=== PATIENT | male | born 1955 | race Caucasian/White ===

== ENCOUNTER 2018-03-04 06:07 | Day surgery (SDC) | payer BC ==
[~2018-03-04] VITALS: Ht 167.6 cm; Wt 82.6 kg
[~2018-03-04 06:07] MED LIST: AMLO5TAB2 PO; L.AC1CAP6 PO; LEVO50TA6 PO; MELO15TA39 PO; TRAM50TA2 PO
[2018-03-04 06:30] VITALS: BP 163/93
[2018-03-04] MEDS ORDERED: ceFAZolin 2 GM IV Premixed 50 ML IV ONE (06:30)
[2018-03-04] MEDS ORDERED: ceFAZolin 2 GM IV Premixed 50 ML ONE (06:45)
[2018-03-04] MEDS: LACTATED RINGERS 1,000 ML IV PRN ×2 (07:01→08:28)
[2018-03-04] MEDS ORDERED: proPOfol 200 MG/20 ML (DIPRIVAN) VIAL IV ONE (07:03)
[2018-03-04] MEDS ORDERED: LISI-556 PO (07:03)
[2018-03-04] MEDS ORDERED: fentaNYL INJECTION 100 MCG/2 ML AMP ONE (07:03)
[2018-03-04] MEDS ORDERED: LACTATED RINGERS 1,000 ML IV ONE ×2 (07:03→08:24)
[2018-03-04] MEDS ORDERED: LIDOCAINE PF 2% 5 ML (XYLOCAINE) VIAL ONE (07:03)
[2018-03-04] MEDS ORDERED: MIDAZOLAM 2 MG/2 ML (VERSED) VIAL ONE (07:03)
[2018-03-04] MEDS ORDERED: DEXAMETHASONE 10 MG/ML (DECADRON) 1 ML VIAL ONE (07:05)
[2018-03-04] MEDS ORDERED: ONDANSETRON 4 MG/2 ML (SDV) Z0FRAN ONE (07:05)
[2018-03-04] MEDS ORDERED: LIDOCAINE/EPI 1%-1:200,000 (XYLOCAINE) 10 ML VIAL ONE (07:28)
--- NOTE | 2018-03-04 08:04 | Progress Note-Pre Operative ---
Pre-Operative Progress Note H&P Reviewed The H&P was reviewed, patient examined and no changes noted. Time Seen by Provider: 07:58 Date H&P Reviewed: Mar 04, 2018 Time H&P Reviewed: 08:00 Pre-Operative Diagnosis: Venous Insufficiency JUAN CARLOS GAINES DO Mar 04, 2018 08:04
--- NOTE | 2018-03-04 08:33 | Progress Note-Post Operative ---
Post-Operative Progess Note Surgeon (s)/Butter Production Supervisor (s) Surgeon JUAN CARLOS GAINES DO Butter Production Supervisor: none Pre-Operative Diagnosis Venous Insufficiency Post-Operative Diagnosis Same Procedure & Operative Findings Date of Procedure 03/04/18 Procedure Performed/Findings Aiyana-cath removal Anesthesia Type IV sedation by Anesthesiologist Estimated Blood Loss Estimated blood loss (mL): scant Specimens/Packing Specimens Removed aiyana-cath JUAN CARLOS GAINES DO Mar 04, 2018 08:33
--- NOTE | 2018-03-04 08:37 | Discharge Inst-Surgical ---
Discharge Inst-Surgical Depart Medication/Instructions New, Converted or Re-Newed RX: Other (no Rx needed) Patient Instructions Follow up Appt: Make appointment for 1 week. Instructions: No strenuous activity today. May shower in 24 hours, no tub bath or soaking. Use incentive spirometer at home as directed. No Smoking Skin/Wound Care: May remove bandages in am. You need to leave the Dermabond on over incision it will fall off on its own. Symptoms to Report: Appetite Changes, Extremity Discoloration, Numbness/Tingling, Swelling Increased , Bleeding Excessive, Eyesight Changes, Pain Increased, Urine Color Change, Constipation(Persistent), Fever over 101 degree F, Pain/Pressure in chest, Urinating Difficulty, Cough Up/Vomit Blood, Heart Beat Irreg/Pounding, Pain/ Pressure in jaw, Cramps in feet or legs, Lightheadedness, Pain/Pressure in shoulder, Diarrhea(Persistent), Memory Changes Suddenly, Questions/Concerns, Weight gain consecutive days, Dizziness/Fainting, Nausea/Vomiting, Shortness of Breath, Weight gain over 2 pounds If questions or concerns contact your physician Or seek help at emergency department. Activity Driving Instructions: You May Drive (tomorrow) Diet Discharge Diet: No Restrictions Diet After 24 Hours: Clear Liquid if Nauseous If Any Problems/Questions/Issu: Contact Your Physician, Go to Emergency Room Skin/Wound Care Infection Signs and Symptoms: Increased Redness, Foul Odor of Wound, Increased Drainage, Skin Itchy or Has a Rash, Increased Swelling, Temperature Above 101 F Stitches/Adel/Dermabond Dis: Dermabond Ice Pack: Ice On and Off Site (as needed for pain) JUAN CARLOS GAINES DO Mar 04, 2018 08:37
[2018-03-04 08:45] VITALS: BP 123/73
[2018-03-04 09:15] VITALS: BP 141/81
--- NOTE | 2018-03-04 09:17 | Anesthesia-General Post-Op ---
MAC Patient Condition Mental Status/LOC: Same as Preop Cardiovascular: Satisfactory Nausea/Vomiting: Absent Respiratory: Satisfactory Pain: Controlled Complications: Absent Post Op Complications Complications None Follow Up Care/Instructions Patient Instructions None needed. Anesthesiology Discharge Order Discharge Order Patient is doing well, no complaints, stable vital signs, no apparent adverse anesthesia problems. No complications reported per nursing. ERASMO BREWSTER CRNA Mar 04, 2018 09:17
--- NOTE | 2018-03-04 09:31 | OPERATIVE REPORT ---
DATE OF SERVICE: PREOPERATIVE DIAGNOSES: Venous insufficiency and history of cancer. POSTOPERATIVE DIAGNOSES: Venous insufficiency and history of cancer. PROCEDURE: Port-A-Cath removal. SURGEON: Iam Bernard DO. SLAT PICKLER: None. ANESTHESIA: IV sedation by the LOAN SERVICES PROFESSIONAL. SPECIMEN: Port-A-Cath. BLOOD LOSS: Scant. FLUIDS: Per anesthesia. POSTOPERATIVE CONDITION: Stable. INDICATION FOR PROCEDURE: The patient is a 62-year-old male, who had a Port-A-Cath placed for cancer and venous insufficiency. He no longer needs it and wants it removed. FINDINGS: The patient had a Port-A-Cath removed without any difficulty. PROCEDURE NOTE: After informed consent was obtained, the patient was brought to the operating room, placed on the table in supine position. He was sterilely prepped and draped in normal fashion. Local lidocaine used to infiltrate the skin under the previous incision as well as around the port. I then made an incision with a #15-blade, carried down through the skin into subcutaneous tissue, made it directly on the previous incision; then deepened down through the subcutaneous tissue with Bovie electrocautery down to the port. The port was then grasped and I was then able to grasp the catheter and pulled the catheter out. I then carefully dissected the port out with Bovie electrocautery going around it, removing it, cutting out the stitch that had been placed to keep it in place and then cutting out the capsule as well. I elected to over-sew the capsule for the catheter to close this off to make sure there was no back bleeding with a 3-0 Vicryl figure-of-8 suture. I copiously irrigated it with normal saline. Hemostasis was obtained using Bovie electrocautery. I elected to close the incision with 4-0 undyed Monocryl, three interrupted subcuticular stitches. The area was cleaned and dried and Dermabond placed as well as then a pressure dressing. The patient was then transferred to the recovery room in stable condition. Sponge, instrument and needle count correct at the end of the case. He tolerated this well. Job ID: [id number] DocumentID: [id number] Dictated Date: 03/04/2018 08:40:00 Rn Vascular Date: 03/04/2018 09:30:40 Dictated By: IAM BERNARD DO
== END 2018-03-04 09:20 | disposition home or self-care (01) ==
LOC: SDC 06:07
PROVIDERS: ATTEND Surgery
DX: Z45.2 Encounter for adjustment and management of vascular access device (principal); I10 Essential (primary) hypertension; Z85.038 Personal history of other malignant neoplasm of large intestine; Z79.899 Other long term (current) drug therapy
CPT/HCPCS: 87081

== ENCOUNTER 2018-05-06 05:40 | Outpatient (CLI) | payer BC ==
[~2018-05-06] VITALS: Ht 167.6 cm; Wt 82.6 kg
[~2018-05-06 05:40] MED LIST changes: -AMLO5TAB2 PO; +AMLO5TAB7 PO; +LISI-556 PO
== END 2018-05-06 13:13 | disposition home or self-care (01) ==
LOC: PREOP 05:40
PROVIDERS: ATTEND Surgery
DX: Z01.818 Encounter for other preprocedural examination (principal)

== ENCOUNTER → 2018-05-13 | Day surgery (SDC) | payer BC ==
[~2018-05-13] VITALS: Ht 167.6 cm; Wt 82.6 kg
[~2018-05-13] MED LIST changes: +LACTATED RINGERS 1,000 ML IV ONE; +LACTATED RINGERS 1,000 ML IV STA; +LIDOCAINE PF 2% 2 ML (XYLOCAINE) VIAL ONE; +MIDAZOLAM 2 MG/2 ML (VERSED) VIAL ONE; +PROPOFOL INJECTION 50 ML IV ONE
[2018-05-13 09:23] VITALS: BP 164/95
--- NOTE | 2018-05-13 10:46 | Progress Note-Pre Operative ---
Pre-Operative Progress Note H&P Reviewed The H&P was reviewed, patient examined and no changes noted. Time Seen by Provider: 10:40 Date H&P Reviewed: May 13, 2018 Time H&P Reviewed: 10:40 Pre-Operative Diagnosis: Personal hx of Colon CA JUAN CARLOS GAINES DO May 13, 2018 10:46
--- NOTE | 2018-05-13 11:18 | Progress Note-Post Operative ---
Post-Operative Progess Note Surgeon (s)/Manager Employee Relations (s) Surgeon JUAN CARLOS GAINES DO Manager Employee Relations: John Cerda, MS III Pre-Operative Diagnosis Personal hx of Colon CA Post-Operative Diagnosis Same plus Descending colon polyp Diverticula Internal Hemorrhoids Procedure & Operative Findings Date of Procedure 05/13/18 Procedure Performed/Findings Colon with snare Anesthesia Type IV Sedation by DUMPER OPERATOR Estimated Blood Loss Estimated blood loss (mL): scant Specimens/Packing Specimens Removed descending colon polyp JUAN CARLOS GAINES DO May 13, 2018 11:18
--- NOTE | 2018-05-13 11:20 | Endoscopy Discharge Instruct ---
Endo Procedure/Findings Findings 1.: Polyp 2.: Diverticulosis 3.: Internal Hemorrhoids Discharge Instructions - Activity: You might feel a little sleepy until tomorrow. This is due to the medicine you received to relax you. Until tomorrow, you should: NOT drive a car, operate machinery or power tools. NOT drink any alcoholic beverages. NOT make any important decisions or sign importortant papers. Do not return to work until tomorrow, unless otherwise instructed. Resume previous activities tomorrow. Diet: Start by taking liquids. If you tolerate liquids, advance to solid food. make an appointment for one week Instructions: 1.: Colonoscopy in 1 year Notify Physician - If you experience excessive bleeding, unusual abdominal pain, fever, or chest pain, contact your doctor immediately. Follow-Up: - I have received and understand the above instructions and will call my doctor if I have any further questions. Patient Signature Date Nurse Signature Other (Relationship) JUAN CARLOS GAINES DO May 13, 2018 11:20
--- NOTE | 2018-05-13 13:03 | OPERATIVE REPORT ---
DATE OF SERVICE: 05/13/2018 PREOPERATIVE DIAGNOSIS: Surveillance colonoscopy secondary to personal history of colon cancer. POSTOPERATIVE DIAGNOSES: 1. Descending colon polyp. 2. Diverticula. 3. Internal hemorrhoids. PROCEDURE: Colonoscopy with snare polypectomy. SURGEON: Iam Bernard DO SMELTER CHARGER: John Cerda MS3 SPECIMEN: Descending colon polyp. BLOOD LOSS: Scant. FLUIDS: Per anesthesia. POSTOPERATIVE CONDITION: Stable. INDICATION FOR PROCEDURE: The patient is a 62-year-old male, who unfortunately had history of colon cancer removed about a year ago and will need a surveillance colonoscopy. FINDINGS: The patient had 1 polyp seen in the descending colon. He had multiple diverticula seen throughout the colon even over in the right side and into the cecum. He also had some grade I internal hemorrhoids. PROCEDURE NOTE: After informed consent was obtained, the patient was brought to the endoscopy suite, placed in the bed in left lateral decubitus position and administered IV sedation by the DIRECTOR OF TAX SERVICES, who then monitored his vitals the entire time, heart rate, blood pressure and pulse ox and the scope inserted. On the way in, noted the previous anastomosis, took a picture and then pushed all the way to the cecum, took a picture of appendiceal orifice and then got into the terminal ileum and took a picture and then slowly withdrew the scope insufflating to look circumferentially at the knowles. Looking at the cecum up the ascending colon to the hepatic flexure, then down the transverse colon to the descending colon and into the descending colon, I saw a polyp, did a snare polypectomy, bled a little bit, tried to control this with some cautery from the snare, so bleeding minimally, I had elected to leave it on, did not want to do too much cauterization of the intestinal wall. Continued down, found the anastomosis again, took a picture and then into the rectum, retroflexed the rectal vault, saw some internal hemorrhoids, took a picture of this and then removed the scope. The patient tolerated the procedure and he was recovered in the endoscopy suite. Job ID: [id number] DocumentID: [id number] Dictated Date: 05/13/2018 11:23:32 Hotel Room Attendant Date: 05/13/2018 13:03:39 Dictated By: IAM BERNARD DO [facility] HOSPITALMarita
--- NOTE | 2018-05-13 14:13 | Anesthesia-General Post-Op ---
MAC Patient Condition Mental Status/LOC: Same as Preop Cardiovascular: Satisfactory Nausea/Vomiting: Absent Respiratory: Satisfactory Pain: Controlled Complications: Absent Post Op Complications Complications None Follow Up Care/Instructions Patient Instructions None needed. Anesthesiology Discharge Order Discharge Order Patient is doing well, no complaints, stable vital signs, no apparent adverse anesthesia problems. No complications reported per nursing. LIV TRIVEDI CRNA May 13, 2018 14:13
== END | disposition home or self-care (01) ==
LOC: ENDO 08:40
PROVIDERS: ATTEND Surgery
DX: Z08 Encounter for follow-up examination after completed treatment for malignant neoplasm (principal); Z85.038 Personal history of other malignant neoplasm of large intestine; D12.4 Benign neoplasm of descending colon; K57.30 Diverticulosis of large intestine without perforation or abscess without bleeding; K64.0 First degree hemorrhoids; I10 Essential (primary) hypertension; Z79.899 Other long term (current) drug therapy